=== PATIENT | female | born 1990 | race Two or more races ===

== ENCOUNTER 2023-04-08 10:37 | Emergency (ER) | payer MEDICAID, OTHER ==
[~2023-04-08] VITALS: Ht 167.6 cm; Wt 84.6 kg
[2023-04-08 13:25] VITALS: BP 128/75; PULSE 90; RESP 20; TEMP 97.9; O2SAT 99
[2023-04-08] MEDS ORDERED: CEPH500C PO (13:26)
== END 2023-04-08 13:55 | disposition home or self-care (01) ==
LOC: ER 10:37
DX: N89.8 Other specified noninflammatory disorders of vagina (principal); Z79.899 Other long term (current) drug therapy